=== PATIENT | male | born 1965 | race Hispanic/Latino ===

== ENCOUNTER 2024-09-03 22:34 | Inpatient (IN) | payer SELFPAY ==
[2024-09-03] MEDS ORDERED: ASPIRIN 81 MG CHEWABLE TABLET ONE (22:42)
[2024-09-03] MEDS ORDERED: ONDANSETRON 4 MG/2 ML VIAL ONE (22:46)
[2024-09-03] MEDS ORDERED: MORPHINE 4 MG/ML SYR ONE (22:47)
[2024-09-03] MEDS ORDERED: ASPIRIN EC 81 MG TAB PO ONE (22:47)
[2024-09-03 23:03] LABS: Absolute Eosinophils 0.1 K/uL (0-0.5); Absolute Lymphocytes (CBC) 1.6 K/uL (0.7-4.9); Absolute Monocytes 0.5 K/uL (0.1-1.3); Absolute Neutrophil 5.4 K/uL (1.8-8.0); Basophils % 0.5 % (0-1.3); Eosinophils % 1.3 % (0-4.4); Hematocrit 44.1 % (39.6-49.0); Lymphocytes % 20.8 % (15.3-44.8); MCH 31.2 pg (27.0-35.0); MCHC 34.1 g/dL (32.0-36.0); MCV 91.5 fL (80-100); MPV 8.1 fL (7.6-11.3); Monocytes % 6.5 % (3.3-12.3); Neutrophils % 70.9 % (41.7-73.7); Nucleated Red Blood Cells % 0.1 % (0-0); Platelets 238 thou/uL (152-406); RBC Red Blood Cell Count 4.82 M/uL (4.33-5.43); Red Cell Distribution Width 12.8 % (12.1-15.2)
[2024-09-03 23:05] LABS: PT Prothrombin Time 11.3 SECONDS (9.4-12.5); Protime INR 1.01
[2024-09-03 23:20] LABS: Anion Gap 8.7 mEq/L (5.0-15.0); BUN Blood Urea Nitrogen 22 mg/dL (7-18); Bicarbonate 26 mEq/L (21-32); Glomerular Filtration Rate 88 ml/min (=/>90); Glucose Level 165 mg/dL (74-106); NT PRO-BNP 25 pg/mL (<125); Potassium 3.7 mEq/L (3.5-5.1); Sodium Level 138 mEq/L (136-145); Troponin High Sensitivity 3.6 pg/mL (<58.9)
[2024-09-03 23:43] LABS: ALT/SGPT 54 U/L (16-61); AST/SGOT 21 U/L (15-37); Albumin 3.6 g/dL (3.4-5.0); Alkaline Phosphatase 84 U/L (45-117); Bilirubin Total 0.5 mg/dL (0.2-1.0); Globulin 3.6 g/dL (2.3-3.5); Lipase 43 U/L (13-75); Protein, Total 7.2 g/dL (6.4-8.2)
[2024-09-03 23:47] LABS: Bilirubin Direct < 0.2 mg/dL (0-0.2); Bilirubin Indirect, Calculated 0.3 mg/dL (0.2-0.8)
[2024-09-04] MEDS ORDERED: NA CHLORIDE 0.9% 1,000 ML ONE (01:27)
[2024-09-04] MEDS ORDERED: MORPHINE 4 MG/ML SYR ONE (01:27)
[2024-09-04] MEDS ORDERED: NA CHLORIDE 0.9% 100 ML ONE (01:27)
[2024-09-04] MEDS ORDERED: PIPERACIL/TAZO 3.375 GM VIAL IV ONE (01:27)
--- NOTE | 2024-09-04 03:02 | ER ---
Nurse's Notes [facility] Name: Kalen Saleem Age: 59 yrs Sex: Male : 1965 Arrival Date: 09/03/2024 Time: 22:34 Bed 4 Private MD: Diagnosis: Acute cholecystitis Presentation: 09/03 22:40 Chief complaint: Patient states: CHEST PAIN EPIGASTRIC AREA THAT RADIATES TO UPPER br2 BACK, NAUSEA. Coronavirus screen: Client denies travel out of the [place] in the last 14 days. Ebola Screen: Patient denies exposure to infectious person. Initial Sepsis Screen: Does the patient meet any 2 criteria? No. Patient's initial sepsis screen is negative. Does the patient have a suspected source of infection? No. Patient's initial sepsis screen is negative. Risk Assessment: Do you want to hurt yourself or someone else? Patient reports no desire to harm self or others. 22:40 Method Of Arrival: Ambulatory br2 22:40 Acuity: SILVINA 3 br2 22:40 Onset of symptoms was September 03, 2023. al5 Triage Assessment: 22:40 General: Appears distressed, uncomfortable, Behavior is anxious. Pain: Complains of br2 pain in xiphoid area and mid-sternal area Pain radiates to left scapular area and left subscapular area Pain currently is 10 out of 10 on a pain scale. Historical: - Allergies: 23:26 No Known Allergies; br2 - Immunization history:: Adult Immunizations not up to date. - Infectious Disease History:: Denies. - Social history:: Smoking status: Patient reports the use of cigarette tobacco products, 5 CIGS PER DAY. Screenin:55 [facility] ED Fall Risk Assessment (Adult) History of falling in the last 3 months, al5 including since admission No falls in past 3 months (0 pts) Confusion or Disorientation No (0 pts) Intoxicated or Sedated No (0 pts) Impaired Gait No (0 pts) Mobility Assist Device Used No (0 pt) Altered Elimination No (0 pt) Score/Fall Risk Level 0 - 2 = Low Risk Oriented to surroundings, Maintained a safe environment, Hourly rounding (assess needs \T\ fall precautionary measures) done. Abuse screen: Denies threats or abuse. Denies injuries from another. Nutritional screening: No deficits noted. Tuberculosis screening: No symptoms or risk factors identified. Assessment: 23:00 General: Appears in no apparent distress. uncomfortable, Behavior is cooperative, al5 restless. Pain: Complains of pain in chest and epigastric area Pain began today. Neuro: Level of Consciousness is awake, alert, obeys commands, Oriented to person, place, time, situation. Cardiovascular: Capillary refill < 3 seconds Patient's skin is warm and dry. Rhythm is sinus rhythm Chest pain is described as severe. Respiratory: Airway is patent Respiratory effort is even, unlabored, Respiratory pattern is regular, symmetrical. GI: Abdomen is round non-distended, Reports epigastric pain, nausea. : No signs and/or symptoms were reported regarding the genitourinary system. EENT: No signs and/or symptoms were reported regarding the EENT system. Derm: Skin is intact, is healthy with good turgor, Skin is pink, warm \T\ dry. normal. Musculoskeletal: No signs and/or symptoms reported regarding the musculoskeletal system. 09/04 00:30 Reassessment: Patient appears in no apparent distress at this time. No changes from al5 previously documented assessment. Patient and/or family updated on plan of care and expected duration. Pain level reassessed. Patient is alert, oriented x 3, equal unlabored respirations, skin warm/dry/pink. 01:43 Reassessment: Patient appears in no apparent distress at this time. No changes from al5 previously documented assessment. Patient and/or family updated on plan of care and expected duration. Pain level reassessed. Patient is alert, oriented x 3, equal unlabored respirations, skin warm/dry/pink. 02:58 Reassessment: Patient appears in no apparent distress at this time. No changes from al5 previously documented assessment. Patient and/or family updated on plan of care and expected duration. Pain level reassessed. Patient is alert, oriented x 3, equal unlabored respirations, skin warm/dry/pink. 04:37 Reassessment: Patient appears in no apparent distress at this time. No changes from al5 previously documented assessment. Patient and/or family updated on plan of care and expected duration. Pain level reassessed. Patient is alert, oriented x 3, equal unlabored respirations, skin warm/dry/pink. Vital Signs: 09/03 22:40 BP 151 / 91; Pulse 74; Resp 18; Temp 97.2; Pulse Ox 100% ; Weight 99.79 kg; Height 5 br2 ft. 7 in. ; Pain 10/10; 23:00 BP 140 / 91; Pulse 66; Resp 19; Pulse Ox 98% on R/A; al5 23:24 BP 136 / 79; Pulse 67; Resp 18; Pulse Ox 100% on R/A; al5 23:30 BP 145 / 79; Pulse 64; Resp 16; Pulse Ox 96% on R/A; al5 23:54 BP 150 / 77; Pulse 61; Resp 16; Pulse Ox 100% on R/A; al5 09/04 00:00 BP 118 / 96; Pulse 63; Resp 14; Pulse Ox 97% on R/A; al5 00:30 BP 132 / 68; Pulse 57; Resp 20; Pulse Ox 98% on R/A; al5 01:00 BP 130 / 70; Pulse 57; Resp 20; Pulse Ox 95% on R/A; al5 01:30 BP 128 / 69; Pulse 62; Resp 15; Pulse Ox 99% on R/A; al5 02:00 BP 119 / 68; Pulse 63; Resp 19; Pulse Ox 94% on R/A; al5 02:30 BP 137 / 84; Pulse 64; Resp 18; Pulse Ox 95% on R/A; al5 03:00 BP 138 / 84; Pulse 67; Resp 17; Pulse Ox 96% on R/A; al5 03:30 BP 129 / 71; Pulse 64; Resp 20; Pulse Ox 94% on R/A; al5 04:00 BP 133 / 83; Pulse 68; Resp 18; Pulse Ox 94% on R/A; al5 09/03 22:40 Body Mass Index 34.46 (99.79 kg, 170.18 cm) br2 09/03 22:40 Pain Scale: Adult br2 ED Course: 09/03 22:35 Patient arrived in ED. ra3 22:36 Renan Cintron MD is Attending Physician. ec2 22:40 Eri Blancas, CHRIS is Primary Nurse. al5 22:40 Arm band placed on right wrist. br2 22:50 XRAY Chest (1 view) Sent. al5 22:50 Basic Metabolic Panel Sent. al5 22:50 CBC with Diff Sent. al5 22:50 NT PRO-BNP Sent. al5 22:50 PT-INR Sent. al5 22:50 Troponin HS Sent. al5 22:54 No provider procedures requiring assistance completed. Inserted saline lock: 20 gauge al5 in right antecubital area, using aseptic technique. Blood collected. Flushed with 10 mL NS. Patient maintains SpO2 saturation greater than 95% on room air. 22:55 Patient has correct armband on for positive identification. Bed in low position. Call al5 light in reach. Side rails up X2. Provided Education on: plan of care. Client placed on continuous cardiac and pulse oximetry monitoring. NIBP monitoring applied. cardiac monitor technician on. 23:02 XRAY Chest (1 view) In Process Unspecified. EDMS 23:26 Triage completed. br2 23:57 CT Abd/Pelvis - IV Contrast Only In Process Unspecified. EDMS 09/04 01:39 US Abdomen Limited In Process Unspecified. EDMS 03:01 Christopher Aparicio MD is Hospitalizing Provider. ec2 03:04 Patient admitted, IV remains in place. br2 Administered Medications: 09/03 22:50 Drug: Aspirin PO Chewable Tablet 324 mg PO once; 81 mg tablets x 4 Route: PO; al5 23:31 Follow up: Response: No adverse reaction al5 22:54 Drug: morphine IVP or IV 4 mg IVP once over 4 mins Route: IVP; Infused Over: 4 mins; al5 Site: right antecubital; 23:31 Follow up: Response: No adverse reaction; Pain is unchanged, physician notified al5 22:54 Drug: Ondansetron IVP 4 mg IVP once; over 2 minutes Route: IVP; Site: right antecubital;al5 23:31 Follow up: Response: No adverse reaction al5 09/04 01:43 Drug: Piperacillin-Tazobactam IVPB 3.375 grams IVPB once over 60 mins; (mix in NS 100 al5 mL) Route: IVPB; Infused Over: 60 mins; Site: right antecubital; 02:30 Follow up: Response: No adverse reaction; IV Status: Completed infusion; IV Intake: br2 100ml 01:43 Drug: morphine IVP or IV 4 mg IVP once over 4 mins Route: IVP; Infused Over: 4 mins; al5 Site: right antecubital; 03:04 Follow up: Response: No adverse reaction; Pain is decreased br2 01:43 Drug: NS 0.9% IV 125 units/hr IV at 125 ml/hr once; to be given as a bolus over 60 al5 minutes Route: IV; Rate: 125 ml/hr; Site: right antecubital; 03:04 Follow up: Response: No adverse reaction; IV Status: Infusion continued upon admission br2 Medication: 09/03 23:37 VIS not applicable for this client. al5 Intake: 09/04 02:30 IV: 100ml; Total: 100ml. br2 Outcome: 03:01 Decision to Hospitalize by Provider. ec2 04:38 Admitted to Med/surg accompanied by tech, via wheelchair, room 211, with chart, al5 04:38 Condition: stable 04:38 Instructed on the need for admit, 04:38 Patient left the ED. al5 Signatures: Dispatcher [employer] Renan De La Torre MD MD ec2 Marija Jett ra3 Eri Blancas RN RN al5 Kindra Shipman RN RN br2
--- NOTE | 2024-09-04 03:02 | EDPHYS ---
Physician Documentation [facility] [place], [place] Name: Kalen Saleem Age: 59 yrs Sex: Male : 1965 Arrival Date: 09/03/2024 Time: 22:34 Bed 4 Private MD: ED Physician Renan Cintron HPI: 09/03 22:44 This 59 yrs old Male presents to ER via Unassigned with complaints of Chest ec2 Pain. 22:44 Patient arrives today for evaluation of epigastric abdominal pain. Reports constant ec2 since approximately 4 hours prior to arrival. Patient reports no nausea or vomiting. Denies any previous cardiac disease, no daily medications. Denies allergies. Reports no specific alleviating or exacerbating factors.. Historical: - Allergies: 23:26 No Known Allergies; br2 - Immunization history:: Adult Immunizations not up to date. - Infectious Disease History:: Denies. - Social history:: Smoking status: Patient reports the use of cigarette tobacco products, 5 CIGS PER DAY. ROS: 22:44 Constitutional: as per hpi ec2 Exam: 22:44 Constitutional: GEN: NAD Head: atraumatic Eyes: EOMI Ears: External ears are ec2 normal. CV: regular rate LUNGS: no respiratory distress ABD: non-distended, soft, tender in the epigastrium, not guarding, obese SKIN: no evidence of rashes MSK: no evidence of trauma Vital Signs: 22:40 BP 151 / 91; Pulse 74; Resp 18; Temp 97.2; Pulse Ox 100% ; Weight 99.79 kg; Height 5 br2 ft. 7 in. ; Pain 10/10; 23:00 BP 140 / 91; Pulse 66; Resp 19; Pulse Ox 98% on R/A; al5 23:24 BP 136 / 79; Pulse 67; Resp 18; Pulse Ox 100% on R/A; al5 23:30 BP 145 / 79; Pulse 64; Resp 16; Pulse Ox 96% on R/A; al5 23:54 BP 150 / 77; Pulse 61; Resp 16; Pulse Ox 100% on R/A; al5 09/04 00:00 BP 118 / 96; Pulse 63; Resp 14; Pulse Ox 97% on R/A; al5 00:30 BP 132 / 68; Pulse 57; Resp 20; Pulse Ox 98% on R/A; al5 01:00 BP 130 / 70; Pulse 57; Resp 20; Pulse Ox 95% on R/A; al5 01:30 BP 128 / 69; Pulse 62; Resp 15; Pulse Ox 99% on R/A; al5 02:00 BP 119 / 68; Pulse 63; Resp 19; Pulse Ox 94% on R/A; al5 02:30 BP 137 / 84; Pulse 64; Resp 18; Pulse Ox 95% on R/A; al5 03:00 BP 138 / 84; Pulse 67; Resp 17; Pulse Ox 96% on R/A; al5 03:30 BP 129 / 71; Pulse 64; Resp 20; Pulse Ox 94% on R/A; al5 04:00 BP 133 / 83; Pulse 68; Resp 18; Pulse Ox 94% on R/A; al5 09/03 22:40 Body Mass Index 34.46 (99.79 kg, 170.18 cm) br2 09/03 22:40 Pain Scale: Adult br2 MDM: 09/03 22:36 Medical Screening Exam initiated ec2 22:44 Data reviewed: vital signs, nurses notes. ED course: Patient arrives today for ec2 evaluation of upper abdominal pain. Examination yields well-appearing nontoxic individual who has tenderness in the epigastrium. Will obtain lab work, CT imaging. Differential diagnosis include process such as ACS, pancreatitis, appendicitis. 22:45 ED course: EKG independently reviewed and interpreted by me, shows normal sinus rhythm, ec2 rate of 75, no acute ST segment elevations, intervals are nonactionable.. 09/04 03:01 ED course: Ultrasonography and CT imaging consistent with acute cholecystitis. Patient ec2 given Zosyn. Discussed case with general surgery and hospitalist, will admit, keep the patient NPO.. 09/03 22:36 Order name: Basic Metabolic Panel; Complete Time: 23:49 ec2 09/03 22:36 Order name: CBC with Diff; Complete Time: 23:16 ec2 09/03 22:36 Order name: NT PRO-BNP; Complete Time: 23:49 ec2 09/03 22:36 Order name: PT-INR; Complete Time: 23:16 ec2 09/03 22:36 Order name: Troponin HS; Complete Time: 23:49 ec2 09/03 23:33 Order name: Liver (Hepatic) Function; Complete Time: 23:49 EDMS 09/03 23:33 Order name: Lipase; Complete Time: 23:49 EDMS 09/04 03:31 Order name: Urinalysis w/ reflexes EDMS 09/04 03:31 Order name: CBC with Automated Diff EDMS 09/04 03:31 Order name: CBC with Automated Diff EDMS 09/04 03:31 Order name: Comprehensive Metabolic Panel EDMS 09/04 03:31 Order name: Comprehensive Metabolic Panel EDMS 09/04 03:31 Order name: Magnesium EDMS 09/04 03:31 Order name: Magnesium EDMS 09/04 03:31 Order name: Phosphorus EDMS 09/04 03:31 Order name: Phosphorus EDMS 09/03 22:36 Order name: XRAY Chest (1 view) ec2 09/03 22:43 Order name: CT Abd/Pelvis - IV Contrast Only; Complete Time: 03:42 ec2 09/04 01:18 Order name: US Abdomen Limited; Complete Time: 03:42 ec2 09/03 22:36 Order name: EKG; Complete Time: 22:37 ec2 09/04 03:31 Order name: CONS Physician Consult EDNY 09/03 22:36 Order name: Cardiac monitoring; Complete Time: 22:50 ec2 09/03 22:36 Order name: EKG - Nurse/Tech; Complete Time: 22:50 ec2 09/03 22:36 Order name: IV Saline Lock; Complete Time: 22:50 ec2 09/03 22:36 Order name: Labs collected and sent; Complete Time: 22:50 ec2 09/03 22:36 Order name: O2 Per Protocol; Complete Time: 22:50 ec2 09/03 22:36 Order name: O2 Sat Monitoring; Complete Time: 22:50 ec2 09/04 01:19 Order name: NPO; Complete Time: 01:45 ec2 Administered Medications: 09/03 22:50 Drug: Aspirin PO Chewable Tablet 324 mg PO once; 81 mg tablets x 4 Route: PO; al5 23:31 Follow up: Response: No adverse reaction al5 22:54 Drug: morphine IVP or IV 4 mg IVP once over 4 mins Route: IVP; Infused Over: 4 mins; al5 Site: right antecubital; 23:31 Follow up: Response: No adverse reaction; Pain is unchanged, physician notified al5 22:54 Drug: Ondansetron IVP 4 mg IVP once; over 2 minutes Route: IVP; Site: right antecubital;al5 23:31 Follow up: Response: No adverse reaction al5 09/04 01:43 Drug: Piperacillin-Tazobactam IVPB 3.375 grams IVPB once over 60 mins; (mix in NS 100 al5 mL) Route: IVPB; Infused Over: 60 mins; Site: right antecubital; 02:30 Follow up: Response: No adverse reaction; IV Status: Completed infusion; IV Intake: br2 100ml 01:43 Drug: morphine IVP or IV 4 mg IVP once over 4 mins Route: IVP; Infused Over: 4 mins; al5 Site: right antecubital; 03:04 Follow up: Response: No adverse reaction; Pain is decreased br2 01:43 Drug: NS 0.9% IV 125 units/hr IV at 125 ml/hr once; to be given as a bolus over 60 al5 minutes Route: IV; Rate: 125 ml/hr; Site: right antecubital; 03:04 Follow up: Response: No adverse reaction; IV Status: Infusion continued upon admission br2 Disposition Summary: 09/04/24 03:01 Hospitalization Ordered Notes: Hospitalization Status: Inpatient Admission ec2 Provider: Christopher Aparicio ec2 Location: Telemetry/[facility] (Inpatient) ec2 Condition: Stable ec2 Problem: new ec2 Symptoms: have improved ec2 Bed/Room Type: Standard ec2 Room Assignment: 211(09/04/24 03:36) rv1 Diagnosis - Acute cholecystitis ec2 Forms: - Medication Reconciliation Form ec2 - SBAR form ec2 - Leadership Thank You Letter ec2 Signatures: Dispatcher [employer] EDMS Zofia Lane rv1 Renan Cintron MD MD ec2 Eri Blancas RN RN al5 Kindra Shipman RN RN br2 Corrections: (The following items were deleted from the chart) 01:19 01:19 Abdomen Limited+[email or web address].BRZ ordered. EDMS EDMS 03:36 03:01 ec2 rv1
--- NOTE | 2024-09-04 03:18 | RAD REPORT ---
EXAM: US Abdomen Limited, Gallbladder CLINICAL HISTORY: Abdominal pain TECHNIQUE: Real-time ultrasound of the right upper quadrant with image documentation. COMPARISON: CT Abdomen Pelvis 09/03/2024 FINDINGS: Limitations: Technically limited secondary to body habitus. Gallbladder: Gallstones and possible sludge. Mild gallbladder wall thickening. Trace pericholecysti c fluid. ultrasound technologist noted a sonographic positive Valle's sign. Common bile duct: Unremarkable as visualized. No stones. No dilation. IMPRESSION: Constellation of findings suggestive of early acute cholecystitis. Electronically signed by: David Chambers MD 09/04/2024 02:57 AM [facility] Due to temporary technical issues with the PACS/[employer] reporting system, reports are being signed by the in-house radiologist without review as a courtesy to ensure prompt reporting the interpreting radiologist is fully responsible for the content of the report. Transcribed Date/Time: 09/04/2024 3:18 AM
[2024-09-04] MEDS ORDERED: ACETAMINOPHEN 325 MG TABLET PO PRN (03:26)
--- NOTE | 2024-09-04 03:26 | RAD REPORT ---
EXAM: CT Abdomen and Pelvis With Intravenous Contrast CLINICAL HISTORY: ABD PAIN TECHNIQUE: Axial computed tomography images of the abdomen and pelvis with intravenous contrast. Sagittal and coronal reformatted images were created and reviewed. This CT exam was performed using one or more of the following dose reduction techniques: automated exposure control, adjustment of the mA a nd/or kV according to patient size, and/or use of iterative reconstruction technique. COMPARISON: No relevant prior studies available. FINDINGS: Lung bases: Right lower lobe tree-in-bud opacities. ABDOMEN: Liver: The liver is enlarged and diffusely low in density compatible with steatosis. Gallbladder and bile ducts: Layering gallstones within a distended gallbladder. Trace pericholecyst ic fluid. Mild biliary dilatation. No calcified ductal stones. Pancreas: Unremarkable. No mass. No ductal dilation. Spleen: Unremarkable. No splenomegaly. Adrenals: Unremarkable. No mass. Kidneys and ureters: Normal renal cortical enhancement. No calculi. No hydronephrosis. 1 cm left renal cyst. No follow-up imaging is recommended. Stomach and bowel: Small and large bowel diverticula without adjacent inflammatory change. Intram ural fat within portions of the large bowel which can be seen in the setting of prior inflammation. No mucosal thickening. No obstruction. PELVIS: Appendix: Normal caliber appendix. No findings to suggest acute appendicitis. Bladder: Bilateral posterior bladder diverticulum. Reproductive: Unremarkable as visualized. ABDOMEN and PELVIS: Intraperitoneal space: Unremarkable. No free air. No significant fluid collection. Bones/joints: Multilevel spondylosis. No acute fracture. No dislocation. Soft tissues: Small fat-containing umbilical and bilateral inguinal hernias. Vasculature: Mild atherosclerotic disease. No abdominal aortic aneurysm. Lymph nodes: Unremarkable. No enlarged lymph nodes. IMPRESSION: 1. Findings which may be related to early acute cholecystitis. 2. Right lower lobe endobronchial infiltrates. 3. Other findings as above. Electronically signed by: David Chambers MD 09/04/2024 01:13 AM [facility] Due to temporary technical issues with the PACS/[employer] reporting system, reports are being mick d by the in-house radiologist without review as a courtesy to ensure prompt reporting the interpreting radiologist is fully responsible for the content of the report. Transcribed Date/Time: 09/04/2024 3:26 AM
--- NOTE | 2024-09-04 03:34 | P.HP ---
Certification for Inpatient Patient admitted to: Inpatient With expected LOS: >2 Midnights Practitioner: I am a practitioner with admitting privileges, knowledge of patient current condition, hospital course, and medical plan of care. Services: Services provided to patient in accordance with Admission requirements found in Title 42 Section 412.3 of the Code of Federal Regulations Patient History Date of Service: 09/04/24 Reason for admission: Acute Cholecystitis History of Present Illness: 59 yrs old Male with no significant past medical history presents to ER with complaints of Chest Pain and epigastric abdominal pain. Reports constant since approximately 4 hours prior to arrival. Patient reports no nausea or vomiting. Denies any previous cardiac disease, no daily medications. Denies allergies. Pain is sharp, 4 out of 10 in severity, nonradiating Patient was assessed in the ER and had a CT and ultrasound which was suggestive of acute cholecystitis and was admitted for further management Allergies No Known Allergies Allergy (Unverified 09/04/24 04:45) Home Medications: NK [No Home Meds] 09/04/24 - Past Medical/Surgical History Past Medical History: Reviewed- Non-Contributory Past Surgical History: Reviewed- Non-Contributory - Family History Family History: Reviewed- Non-Contributory - Social History Smoking Status: Current some day smoker Review of Systems 10-point ROS is otherwise unremarkable Physical Examination - Vital Signs Temperature: 97.9 F Blood Pressure: 132/78 Pulse: 78 Respirations: 18 Pulse Ox (%): 97 - Physical Exam General: Alert, In no apparent distress, Oriented x3 HEENT: Atraumatic, Normocephalic Neck: Supple Respiratory: Clear to auscultation bilaterally, Normal air movement Cardiovascular: Regular rate/rhythm, Normal S1 S2 Capillary refill: <2 Seconds Gastrointestinal: Soft and benign, W/out hepatosplenomegaly Musculoskeletal: No clubbing, No swelling Integumentary: No rashes Neurological: Normal speech, Normal strength at 5/5 x4 extr Lymphatics: No axilla or inguinal lymphadenopathy - Studies Laboratory Data (last 24 hrs) 09/03/24 09/03/24 09/03/24 23:30 22:45 22:45 WBC 7.60 Hgb 15.0 Hct 44.1 Plt Count 238 PT 11.3 INR 1.01 Sodium Potassium BUN Creatinine Glucose Total Bilirubin Cancelled AST Cancelled ALT Cancelled Alkaline Phosphatase Cancelled Lipase Cancelled 09/03/24 22:45 WBC Hgb Hct Plt Count PT INR Sodium 138 Potassium 3.7 BUN 22 H Creatinine 1.00 Glucose 165 H Total Bilirubin 0.5 AST 21 ALT 54 Alkaline Phosphatase 84 Lipase 43 Assessment and Plan - Plan Acute cholecystitis Pain controlled IV antibiotics Surgical consult IV fluids Keep n.p.o. for now GI/DVT prophylaxis Advanced directive full code Discharge Plan: Home Plan to discharge in: 48 Hours - Advance Directives Does patient have a Living Will: No Does patient have a Durable POA for Healthcare: No - Code Status/Comfort Care Code Status: Full Code Time Spent Managing Pts Care (In Minutes): 48
[2024-09-04] MEDS ORDERED: ONDANSETRON 4 MG/2 ML VIAL IV PRN (04:30)
[2024-09-04] MEDS: NA CHLORIDE 0.9% 1,000 ML IV SCH (05:02)
[2024-09-04] MEDS: MORPHINE 2 MG/ML SYR IV PRN (05:05)
[2024-09-04 06:04] LABS: Anion Gap 8.2 mEq/L (5.0-15.0); Magnesium 2.2 mg/dL (1.6-2.4); Phosphorus 3.1 mg/dL (2.5-4.9); Potassium 4.2 mEq/L (3.5-5.1)
--- NOTE | 2024-09-04 06:13 | RAD REPORT ---
EXAM: XR Chest, 1 View CLINICAL HISTORY: The patient is 59 years old and is Male; CHEST PAIN TECHNIQUE: Frontal view of the chest. COMPARISON: No relevant prior studies available. FINDINGS: Lungs: Unremarkable. No consolidation. Pleural space: Unremarkable. No pneumothorax. Heart: Unremarkable. Mediastinum: Unremarkable. Normal mediastinal contour. Bones/joints: No acute findings. IMPRESSION: No acute findings in the chest. Electronically signed by: Randy Arango MD 09/04/2024 12:00 AM [facility] 8 Due to temporary technical issues with the PACS/[employer] reporting system, reports are being mick d by the in-house radiologist without review as a courtesy to ensure prompt reporting the interpreting radiologist is fully responsible for the content of the report. Transcribed Date/Time: 09/04/2024 6:12 AM
[2024-09-04] MEDS: PIPER TAZO 3.375 GM in NA CHLORIDE 0.9% 100 ML IV SCH (07:54)
[2024-09-04] MEDS: ENOXAPARIN 40 MG/0.4 ML SQ SCH (09:00)
[2024-09-04 10:58] LABS: Specific Gravity > 1.030 (1.005-1.030); Urine Bilirubin NEGATIVE (Negative); Urine Blood Negative (Negative); Urine Clarity Clear (Clear); Urine Color Light-Yellow (Yellow); Urine Glucose NEGATIVE (Negative); Urine Ketones NEGATIVE (Negative); Urine Microscopic Reflex YN NO UMIC; Urine Nitrite NEGATIVE (Negative); Urine Protein NEGATIVE (Negative); Urine Urobilinogen Normal (Normal)
[2024-09-04] MEDS ORDERED: propofoL 200 MG/20 ML VIAL IV ONE (11:59)
[2024-09-04] MEDS ORDERED: ROCURONIUM 50 MG/5 ML VIAL IV ONE (11:59)
[2024-09-04] MEDS ORDERED: ONDANSETRON 4 MG/2 ML VIAL ONE (11:59)
[2024-09-04] MEDS ORDERED: LIDOCAINE 2% MPF 5 ML VIAL ONE (11:59)
[2024-09-04] MEDS ORDERED: FENTANYL CITR 100 MCG/2 ML ONE (11:59)
[2024-09-04] MEDS ORDERED: MIDAZOLAM HCL 2 MG/2 ML INJ ONE (11:59)
[2024-09-04] MEDS ORDERED: SUGAMMADEX SODIUM 200 MG/2 ML VIAL IV ONE (12:05)
--- NOTE | 2024-09-04 13:25 | P.CNS ---
Date of Consult: 09/04/24
[2024-09-04] MEDS ORDERED: dexAMETHasone 10 MG/ML VIAL ONE (13:39)
[2024-09-04] MEDS ORDERED: KETOROLAC 30 MG/ML INJ ONE (15:09)
[2024-09-04] MEDS: NA CHLORIDE 0.9% 1,000 ML ONE (15:28)
--- NOTE | 2024-09-04 15:29 | P.OP ---
Preoperative diagnosis: Acute cholecystitis with cholelithiasis Postoperative diagnosis: The same with hydrops Primary procedure: Laparoscopic cholecystectomy Secondary procedure: Cholangiogram Anesthesia: General Estimated blood loss: Less than 20 cc Specimen: Gallbladder and contents Operative Technique: The patient brought the operating room and placed supine on the table. After the induction of adequate general endotracheal anesthesia, the area of the abdomen was prepped with a DuraPrep solution, and she was draped in the he was draped in the usual aseptic manner. A subumbilical incision was made. This brought down through the skin and subcutaneous tissue. The Visiport was used to enter the peritoneal cavity and created pneumoperitoneum to approximately 12 mmHg. Under direct vision a 5 mm trocar was placed in the upper midline, and 2 other 5 mm trocars on the right lateral side of the abdomen. We were now able to visualize the gallbladder. It was noted to be markedly swollen and inflamed. There were a marked amount of adhesions that appeared to be old but acutely inflamed adherent to the gallbladder itself. A it was necessary to aspirate the contents of the gallbladder to place a grasper on the fundus. This having been done it was interesting noted that that the bile itself was actually clear indicating a hydrops of the gallbladder. Gentle dissection was now begun. We had a laborious dissection of omentum off the inferior surface of the gallbladder itself. We were able to clear this down to Bang's pouch. Applying lateral traction we were able to expose the cystic duct. You could see that there was an abrupt transition from the gallbladder into the cystic duct. Indicating that the patient most likely has competent valves in the cystic duct, as well as the outlines and where the stone had been lodged in the distal end of the gallbladder. A clip was placed between the gallbladder and the cystic duct. An opening was now made into the cystic duct through which we were able to pass the Cholangiocath. The cholangiogram demonstrated a good flow of contrast into the duodenum, no filling defects were noted. The catheter was removed. Clips were placed on the distal portion of the cystic duct which was now fully transected. The cystic artery was identified and clipped in the usual way. Gentle dissection of the gallbladder was now done between the gallbladder and the serosal surface of the liver. Having done this dissection we are finally able to release and at the top it was placed into an Endo Catch and brought out thro [facility] the umbilical trocar site. At the umbilicus is a very large distended gallbladder it was necessary to make a slight widening of the incision in this area to bring the gallbladder to the outside. The defect was approximated using interrupted sutures of an absorbable material placed using the Endo Close. A Mo-Slade drain was now placed into Morison's pouch, and brought out through her most lateral trocar. The area was irrigated with a copious amount of a saline solution and the irrigating fluid was aspirated from the peritoneal cavity. Once again the gallbladder fossa was inspected to ensure adequate hemostasis. The pneumoperitoneum was now collapsed, the trocars removed, and the sutures tied. Nigel were then applied to the skin. At the end of the procedure the patient was in a stable condition when sent to the recovery room. Needle sponge instrument count were correct. 1 KRAIG drain was placed. Complications: None Drain(s): KRAIG drain Transferred to: Recovery Room Condition: Good
--- NOTE | 2024-09-04 16:13 | RAD REPORT ---
EXAM: Fluoroscopy use, Cholangiogram Oper-Xray Or HISTORY: [facility] MAIN CHOLANGIOGRAM COMPARISON: None FINDINGS: A total of 4 images were sent to PACS, during a fluoroscopically guided intraoperative chol angiography. No radiologist was involved in protocoling or performance of the study, and no radiologist was present for the duration of the procedure. No interpretation of the saved images will be provided. Total fluoroscopy time: Less than 0.1 minute. IMPRESSION: Documentation of fluoroscopy use as above.
[2024-09-05] MEDS: HYDROCODONE/APAP 5/325 MG TAB PO PRN (00:03)
[2024-09-05 06:22] LABS: Albumin 2.6 g/dL (3.4-5.0); Albumin/Globulin Ratio 0.8 (1.1-1.8); Anion Gap 7.9 mEq/L (5.0-15.0); Bilirubin Total 1.3 mg/dL (0.2-1.0); Globulin 3.2 g/dL (2.3-3.5); Magnesium 2.1 mg/dL (1.6-2.4); Potassium 3.9 mEq/L (3.5-5.1); Protein, Total 5.8 g/dL (6.4-8.2)
[2024-09-05 06:23] LABS: Absolute Lymphocytes (CBC) 0.9 K/uL (0.7-4.9); Absolute Monocytes 1.3 K/uL (0.1-1.3); Absolute Neutrophil 14.2 K/uL (1.8-8.0); Basophils % 0.1 % (0-1.3); Hematocrit 37.6 % (39.6-49.0); Lymphocytes % 5.5 % (15.3-44.8); MCH 31.3 pg (27.0-35.0); MCHC 34.6 g/dL (32.0-36.0); MCV 90.5 fL (80-100); MPV 8.7 fL (7.6-11.3); Monocytes % 7.9 % (3.3-12.3); Neutrophils % 86.5 % (41.7-73.7); Platelets 213 thou/uL (152-406); RBC Red Blood Cell Count 4.15 M/uL (4.33-5.43); Red Cell Distribution Width 12.9 % (12.1-15.2)
[2024-09-05 07:23] LABS: Atypical Lymphocytes 2 %; Blood Morphology Comment NOT SEEN (NOT SEEN); Differential Total Cells Count 100; Lymphocytes 3 % (15-42); Metamyelocytes 2 % (0-0); Monocytes 6 % (0-10); Platelet Estimate ADEQ; Segmented Neutrophils 87 % (40-80)
--- NOTE | 2024-09-05 13:31 | P.PN ---
Date of Service: 09/05/24 Subjective: no overnight events KRAIG drain with 100+ml serosang fluid Review of Systems 10-point ROS is otherwise unremarkable Physical Examination - Vital Signs reviewed - Physical Exam General: Alert, In no apparent distress, Oriented x3 HEENT: Atraumatic, Normocephalic Neck: Supple Respiratory: Clear to auscultation bilaterally, Normal air movement Cardiovascular: Regular rate/rhythm, Normal S1 S2 Capillary refill: <2 Seconds Gastrointestinal: Soft and benign, W/out hepatosplenomegaly, trochar site bandages clean and dry, lateral site with KRAIG drain with serosang dc, + bowel sounds x 4 quads Musculoskeletal: No clubbing, No swelling Integumentary: No rashes Neurological: Normal speech, Normal strength at 5/5 x4 extr Lymphatics: No axilla or inguinal lymphadenopathy - Studies Laboratory Data (last 24 hrs) 09/03/24 09/03/24 09/03/24 23:30 22:45 22:45 WBC 7.60 Hgb 15.0 Hct 44.1 Plt Count 238 PT 11.3 INR 1.01 Sodium Potassium BUN Creatinine Glucose Total Bilirubin Cancelled AST Cancelled ALT Cancelled Alkaline Phosphatase Cancelled Lipase Cancelled 09/03/24 22:45 WBC Hgb Hct Plt Count PT INR Sodium 138 Potassium 3.7 BUN 22 H Creatinine 1.00 Glucose 165 H Total Bilirubin 0.5 AST 21 ALT 54 Alkaline Phosphatase 84 Lipase 43 Assessment and Plan - Plan Acute cholecystitis Pain control IV antibiotics Dr. Nails following IV fluids advance diet Mild postop, transient tachycardia EKG shows low voltage but no ectopy, rate 82 TEDS GI/DVT prophylaxis Advanced directive full code Discharge Plan: Home Plan to discharge in: 48 Hours - Advance Directives Does patient have a Living Will: No Does patient have a Durable POA for Healthcare: No - Code Status/Comfort Care Code Status: Full Code
[2024-09-05] MEDS: POTASSIUM CL SA 10 MEQ TAB PO ONE ×2 (14:47→14:54)
[2024-09-05 16:30] VITALS: O2SAT 97; BMI 33.3
--- NOTE | 2024-09-06 08:33 | P.PN ---
Date of Service: 09/06/24 Subjective: no overnight events KRAIG drain with 50+ml serosang fluid Review of Systems 10-point ROS is otherwise unremarkable Physical Examination - Vital Signs reviewed - Physical Exam General: Alert, In no apparent distress, Oriented x3 HEENT: Atraumatic, Normocephalic Neck: Supple Respiratory: Clear to auscultation bilaterally, Normal air movement Cardiovascular: Regular rate/rhythm, Normal S1 S2 Capillary refill: <2 Seconds Gastrointestinal: Soft and benign, W/out hepatosplenomegaly, trochar site bandages clean and dry, lateral site with KRAIG drain with serosang dc, + bowel sounds x 4 quads Musculoskeletal: No clubbing, No swelling Integumentary: No rashes Neurological: Normal speech, Normal strength at 5/5 x4 extr Lymphatics: No axilla or inguinal lymphadenopathy - Studies Laboratory Data (last 24 hrs) 09/03/24 09/03/24 09/03/24 23:30 22:45 22:45 WBC 7.60 Hgb 15.0 Hct 44.1 Plt Count 238 PT 11.3 INR 1.01 Sodium Potassium BUN Creatinine Glucose Total Bilirubin Cancelled AST Cancelled ALT Cancelled Alkaline Phosphatase Cancelled Lipase Cancelled 09/03/24 22:45 WBC Hgb Hct Plt Count PT INR Sodium 138 Potassium 3.7 BUN 22 H Creatinine 1.00 Glucose 165 H Total Bilirubin 0.5 AST 21 ALT 54 Alkaline Phosphatase 84 Lipase 43 Assessment and Plan - Plan Acute cholecystitis Pain control IV antibiotics Dr. Nails following IV fluids advance diet Mild postop, transient tachycardia EKG shows low voltage but no ectopy, rate 82 TEDS 09/06/24 Pt tolerating po, no complaints, VSS. decreased KRAIG out. Will await Dr. Nails for discharge plan. GI/DVT prophylaxis Advanced directive full code Discharge Plan: Home Plan to discharge in: 24 Hours - Advance Directives Does patient have a Living Will: No Does patient have a Durable POA for Healthcare: No - Code Status/Comfort Care Code Status: Full Code
[2024-09-06 08:51] LABS: Absolute Lymphocytes (CBC) 1.7 K/uL (0.7-4.9); Absolute Monocytes 0.8 K/uL (0.1-1.3); Absolute Neutrophil 6.7 K/uL (1.8-8.0); Basophils % 0.3 % (0-1.3); Eosinophils % 0.4 % (0-4.4); Hematocrit 38.2 % (39.6-49.0); Hemoglobin 12.9 g/dL (13.6-17.9); MCH 30.8 pg (27.0-35.0); MCHC 33.8 g/dL (32.0-36.0); MCV 91.2 fL (80-100); MPV 8.2 fL (7.6-11.3); Monocytes % 8.3 % (3.3-12.3); Platelets 191 thou/uL (152-406); RBC Red Blood Cell Count 4.19 M/uL (4.33-5.43)
[2024-09-06 09:00] LABS: Albumin 2.7 g/dL (3.4-5.0); Albumin/Globulin Ratio 0.8 (1.1-1.8); Anion Gap 7.7 mEq/L (5.0-15.0); Globulin 3.2 g/dL (2.3-3.5); Potassium 3.7 mEq/L (3.5-5.1); Protein, Total 5.9 g/dL (6.4-8.2)
--- NOTE | 2024-09-06 19:32 | P.DS ---
Admission Date: 09/04/24 Discharge Date: 09/07/24 Consultations: Dr. Nails Procedures: Laparoscopic cholecystectomy with KRAIG drain Brief History of Present Illness: 59 yrs old Male with no significant past medical history presents to ER with complaints of Chest Pain and epigastric abdominal pain. Reports constant since approximately 4 hours prior to arrival. Patient reports no nausea or vomiting. Denies any previous cardiac disease, no daily medications. Denies allergies. Pain is sharp, 4 out of 10 in severity, nonradiating Patient was assessed in the ER and had a CT and ultrasound which was suggestive of acute cholecystitis and was admitted for further management Hospital Course: Mr. Keith Saleem did very well during his cholecystectomy, he had a large amount of irrigation during the procedure and stated a few days EXTR in the hospital secondary to serosanguineous drainage from the KRAIG drain. The drainage has decreased daily and Dr. Nails cleared the patient for drain removal and discharge. He is tolerating p.o. without difficulty. Has been ambulatory without problems, dizziness, or shortness of breath. He will follow-up with Dr. Nails in 1 to 2 weeks on an outpatient basis. <Sandra Ellis - Last Filed: 09/07/24 06:06> Admission Date: 09/04/24 Discharge Date: 09/06/24 Reason for Admission: Acute Cholecystitis Hospital Course: Discharge diagnosis Acute cholecystitis Obesity <teddyoscar oconnor - Last Filed: 09/07/24 19:44> Disposition: ROUTINE DISCHARGE Discharge Condition: GOOD Vital Signs/Physical Exam: Temp Pulse Resp BP Pulse Ox 97.6 F 72 20 125/71 94 09/06/24 20:00 09/06/24 20:00 09/06/24 20:00 09/06/24 20:00 09/06/24 20:00 General: Alert, In no apparent distress, Oriented x3 HEENT: Atraumatic, Normocephalic Neck: Supple Respiratory: Clear to auscultation bilaterally, Normal air movement Cardiovascular: No edema, Normal pulses Capillary refill: <2 Seconds Gastrointestinal: Normal bowel sounds, Soft and benign, Other (KRAIG drain with decreased drainage, Dr. Nails has cleared him for discharge) Musculoskeletal: No clubbing, No swelling Integumentary: No rashes Neurological: Normal speech, Normal tone, Normal affect Lymphatics: No axilla or inguinal lymphadenopathy External genitalia: Deferred Rectal: Deferred Laboratory Data at Discharge: WBC 9.20 thou/uL (4.3-10.9) 09/06/24 08:36 Hgb 12.9 g/dL (13.6-17.9) L 09/06/24 08:36 Hct 38.2 % (39.6-49.0) L 09/06/24 08:36 Plt Count 191 thou/uL (152-406) 09/06/24 08:36 PT 11.3 SECONDS (9.4-12.5) 09/03/24 22:45 INR 1.01 09/03/24 22:45 Sodium 139 mEq/L (136-145) 09/06/24 08:36 Potassium 3.7 mEq/L (3.5-5.1) 09/06/24 08:36 BUN 17 mg/dL (7-18) 09/06/24 08:36 Creatinine 0.76 mg/dL (0.70-1.30) 09/06/24 08:36 Glucose 95 mg/dL (74-106) 09/06/24 08:36 Phosphorus 3.0 mg/dL (2.5-4.9) 09/05/24 04:21 Magnesium 2.1 mg/dL (1.6-2.4) 09/05/24 04:21 Total Bilirubin 1.0 mg/dL (0.2-1.0) 09/06/24 08:36 AST 15 U/L (15-37) 09/06/24 08:36 ALT 42 U/L (16-61) 09/06/24 08:36 Alkaline Phosphatase 44 U/L (45-117) L 09/06/24 08:36 Lipase Cancelled 09/03/24 23:30 <Ellis,Sandra Perez - Last Filed: 09/07/24 06:06> Vital Signs/Physical Exam: Temp Pulse Resp BP Pulse Ox 98.1 F 76 21 H 126/74 96 09/06/24 16:00 09/06/24 16:00 09/06/24 16:00 09/06/24 16:00 09/06/24 16:00 Laboratory Data at Discharge: WBC 9.20 thou/uL (4.3-10.9) 09/06/24 08:36 Hgb 12.9 g/dL (13.6-17.9) L 09/06/24 08:36 Hct 38.2 % (39.6-49.0) L 09/06/24 08:36 Plt Count 191 thou/uL (152-406) 09/06/24 08:36 PT 11.3 SECONDS (9.4-12.5) 09/03/24 22:45 INR 1.01 09/03/24 22:45 Sodium 139 mEq/L (136-145) 09/06/24 08:36 Potassium 3.7 mEq/L (3.5-5.1) 09/06/24 08:36 BUN 17 mg/dL (7-18) 09/06/24 08:36 Creatinine 0.76 mg/dL (0.70-1.30) 09/06/24 08:36 Glucose 95 mg/dL (74-106) 09/06/24 08:36 Phosphorus 3.0 mg/dL (2.5-4.9) 09/05/24 04:21 Magnesium 2.1 mg/dL (1.6-2.4) 09/05/24 04:21 Total Bilirubin 1.0 mg/dL (0.2-1.0) 09/06/24 08:36 AST 15 U/L (15-37) 09/06/24 08:36 ALT 42 U/L (16-61) 09/06/24 08:36 Alkaline Phosphatase 44 U/L (45-117) L 09/06/24 08:36 Lipase Cancelled 09/03/24 23:30 <oscar jarvis - Last Filed: 09/07/24 19:44> <Sandra Ellis - Last Filed: 09/07/24 06:06> Diet: AHA Activity: Fall precautions Time spent managing pt's care (in minutes): 37 <oscar jarvis - Last Filed: 09/07/24 19:44> Home Medications: Hydrocodone 5/APAP 325 [[place] 5/325*] 1 tab PO Q4H PRN #30 tab 09/05/24 levoFLOXacin [Levaquin] 500 mg PO DAILY #7 tab 09/05/24 metroNIDAZOLE [Flagyl] 500 mg PO Q8H #21 tab 09/05/24 New Medications: metroNIDAZOLE [Flagyl] 500 mg PO Q8H #21 tab levoFLOXacin [Levaquin] 500 mg PO DAILY #7 tab Hydrocodone 5/APAP 325 [[place] 5/325*] 1 tab PO Q4H PRN #30 tab PRN Reason: Pain Scale 5-7 (Moderate) Physician Discharge Instructions: OK TO DC IV AND DC HOME FOLLOW-UP WITH PRIMARY CARE PROVIDER IN 1-2 WEEKS FOLLOW-UP WITH Surgery IN 1-2 WEEKS RETURN TO THE ER IF symptoms worsens CALL DR. CHOPRA AT [phone] IF ANY QUESTIONS REGARDING HOSPITAL STAY. PLEASE CALL THE FLOOR AT [phone] IF ANY MEDICATION OR NURSING QUESTIONS. Followup: NONE,NONE [Primary Care Provider] - Triston Nails MD [ACTIVE - CAN ADMIT] - 1 Week (Please call for an appointment next week on Wednesday09/13/2024 at 10 am)
[2024-09-08 01:06] VITALS: BP 125/71
[2024-09-08 01:13] VITALS: TEMP 97.6
== END 2024-09-06 21:37 | disposition home or self-care (01) | DRG 418 ==
LOC: ER 22:34 → 2ND 09-04 03:26
PROVIDERS: ADMIT Family Medicine; ATTEND Internal Medicine
PROC: BF121ZZ Fluoroscopy of Gallbladder using Low Osmolar Contrast (ICD-10-PCS; 2024-09-04)
PROC: 0FT44ZZ Resection of Gallbladder, Percutaneous Endoscopic Approach (ICD-10-PCS; principal; 2024-09-04 13:25)
DX: K80.00 Calculus of gallbladder with acute cholecystitis without obstruction (principal); I97.191 Other postprocedural cardiac functional disturbances following other surgery; E66.9 Obesity, unspecified; F17.210 Nicotine dependence, cigarettes, uncomplicated; R00.0 Tachycardia, unspecified; Z68.33 Body mass index [BMI] 33.0-33.9, adult; Z79.899 Other long term (current) drug therapy; Y83.8 Other surgical procedures as the cause of abnormal reaction of the patient, or of later complication, without mention of misadventure at the time of the procedure
CPT/HCPCS: 36415; 71045; 74177; 74300; 76705; 80048; 80053; 80076; 81003; 83690; 83735; 83880; 84100; 84484; 85025; 85610; 88304; 96361; 96365; 96375; 99285; J1100; J1650; J2003; J2250; J2270; J2405; J2543; J2704; J3010; J7030; Q9967